=== PATIENT | female | born 1955 | race Caucasian/White ===

== ENCOUNTER 2017-04-07 09:04 | Day surgery (SDC) | payer OTHER ==
[~2017-04-07] VITALS: Ht 160 cm; Wt 91.0 kg
[2017-04-07] VITALS (15 sets, daily range): BP systolic 137–172; BP diastolic 65–81; PULSE 47–63; RESP 12–21; Ht 160 cm; Wt 91.0 kg
[~2017-04-07 09:04] MED LIST: CEFAZOLIN 2 GM/50 ML (PMX) 50 ML IVPB SCH; SOD CHLORIDE 0.9% 1,000 ML IV SCH
[2017-04-07] MEDS ORDERED: ATEN50TA PO (09:42)
[2017-04-07] MEDS ORDERED: OMEP40CA6 PO (09:43)
[2017-04-07] MEDS ORDERED: LISI10TA2 PO (09:43)
[2017-04-07] MEDS ORDERED: HYDROmorphONE (0.2 MG/ML) 10ML SYG IV PRN ×2 (11:30)
[2017-04-07] MEDS ORDERED: MEPERIDINE 25 MG INJ IV PRN (11:30)
[2017-04-07] MEDS ORDERED: FENTAnyl 50 MCG/ML VIAL IV PRN ×2 (11:30)
[2017-04-07] MEDS ORDERED: DIPHENHYDRAMINE 50 MG INJ IV PRN (11:30)
[2017-04-07] MEDS ORDERED: FENTAnyl 50 MCG/ML VIAL ONE (12:30)
[2017-04-07] MEDS ORDERED: SUGAMMADEX SODIUM 200 MG/2 ML VIAL IV ONE (12:58)
[2017-04-07] MEDS ORDERED: ROCURONIUM 50 MG INJ ONE (12:58)
[2017-04-07] MEDS ORDERED: PROPOFOL 20 ML ONE (12:58)
[2017-04-07] MEDS ORDERED: SUCCINYLCHOLINE CHLORIDE 100 MG/5 ML SYG IV ONE (12:58)
[2017-04-07] MEDS ORDERED: CEFAZOLIN 1 GM INJ ONE (12:58)
[2017-04-07] MEDS ORDERED: LIDOCAINE 2% (SDV) 5 ML INJ ONE (12:58)
[2017-04-07] MEDS ORDERED: ROPIVACAINE 0.5 % 30 ML VIAL ONE (13:05)
[2017-04-07] MEDS ORDERED: BUPIVACAINE 0.25% (MPF) 30 ML INJ INJ ONE (13:11)
--- NOTE | 2017-04-07 13:14 | OPR ---
Date/Time of Note Date/Time of Note DATE: 04/07/17 TIME: 13:11 Operative Report Procedure Date: Apr 07, 2017 Preoperative Diagnosis incarcerated incisional hernia Postoperative Diagnosis same Operation/Procedure Performed 1. laparoscopic incarcerated incisional hernia cpt code 14931 2. intraabdominal implantation of 10 cm x [address] mesh cpt code 70023 3. laparoscopic lysis of adhesions 4. therapeutic injection of subcutaneous local anesthesia cpt code 37111 Surgeon see signature line Brass Pourer melissa cortez Anesthesia Type: general Estimated Blood Loss: 10 - 50 ml's Transfusion none Specimen none Grafts/Implants none Complications none Pt Condition Post Procedure: stable Indications This is a 60-year-old female with symptomatic incarcerated incisional hernia. She requests surgical repair. Risks alternatives benefits and percent were discussed the patient. Patient's best understanding consents to the operation. Procedure Description Patient taken to the OR and prepped and draped in usual sterile fashion. Surgical timeout was performed. IV antibiotics given. Left upper quadrant 5 mm transverse incision is made with a 15 blade. Using a 5 mm optical trocar optical entry is performed. Pneumoperitoneum is established. Left flank 12 mm optical trocar and left lower quadrant 5 mm optical trocar are placed under direct visualization. Upon initial inspection there is incarcerated incisional hernia. Laparoscopic lysis of adhesions performed to get to the area of incarceration with adhesions. The incarcerated contents are then reduced manually using lap scopic harmonic beti. The hernia defect was then identified in multiple interrupted #1 Prolenes were placed with Endo Close and laparoscopic techniques. Underlay mesh was then secured in place with secure strap with 4-5 cm of coverage in all directions. There is good hemostasis. Ports removed under direct physician. Incisions are closed with interrupted and running 4-0 Monocryl. Therapeutic contains local anesthesia was injected. Dry dressings were applied. Ge ALLEN Apr 07, 2017 13:14
[2017-04-07] MEDS ORDERED: HYDROCODONE/APAP (5/325) TAB PO ONE (13:30)
[2017-04-07] MEDS: HYDROmorphONE (0.2 MG/ML) 10ML SYG IV PRN ×3 (13:42→14:00)
--- NOTE | 2017-04-07 16:51 | RADRPT ---
PROCEDURE: XR Chest. CLINICAL INDICATION: Shortness of breath TECHNIQUE: Single portable view of the chest was obtained COMPARISON: No priors for comparison FINDINGS: The trachea is midline. The cardiac silhouette and pulmonary vascularity are within normal limits. T he lungs are clear. The costophrenic angles are sharp. IMPRESSION: 1. No evidence of acute cardiopulmonary disease. RPTAT: AAPP Physician Karli Date Time Electronically viewed and signed by Rosie Chery Physician on 04/07/2017 11:18 ASHLEY/
== END 2017-04-07 15:39 | disposition home or self-care (01) ==
LOC: SDS 09:04
PROVIDERS: ATTEND Surgery
DX: K43.2 Incisional hernia without obstruction or gangrene (principal)
CPT/HCPCS: 49655; 71010; C1781; J0690; J1170; J2795; J3010; Z7512; Z7610

== ENCOUNTER 2017-04-23 05:38 | Inpatient (IN) | END 2017-05-06 13:35 | disposition home health service (06) | DRG 330 ==

== ENCOUNTER 2017-06-05 14:44 | Emergency (ER) | END 2017-06-05 23:59 | disposition short-term general hospital (02) ==